=== PATIENT | male | born 1965 ===

== ENCOUNTER 2021-04-28 12:28 | Day surgery (SDC) | payer OTHER ==
[~2021-04-28 12:28] MED LIST: NEURONTIN300 MG
== END 2021-04-28 20:00 | disposition home or self-care (01) ==
LOC: CIR.AMB 12:28
PROVIDERS: ATTEND Orthopaedic Surgery
DX: M67.422 Ganglion, left elbow (principal); M19.022 Primary osteoarthritis, left elbow; Z20.822 Contact with and (suspected) exposure to COVID-19